=== PATIENT | female | born 1995 | race Hispanic/Latino ===

== ENCOUNTER 2017-12-10 07:53 | Inpatient (IN) | payer MEDICAID ==
[~2017-12-10] VITALS: Ht 149.9 cm; Wt 73.0 kg
[2017-12-10] MEDS ORDERED: LACTATED RINGERS 1000ML 1,000 ML IV PRN ×2 (08:11→08:31)
[2017-12-10 08:30] LABS: APPEARANCE,URINE Clear (CLEAR); BILIRUBIN,URINE Negative (NEGATIVE); COLOR,URINE Yellow (YELLOW); GLUCOSE, URINE (UA) Negative (NEGATIVE); KETONES,URINE Negative (NEGATIVE); LEUKOCYTE ESTERASE ,URINE Small (NEGATIVE); NITRATE,URINE Negative (NEGATIVE); OCCULT BLOOD,URINE Trace (NEGATIVE); PH,URINE 5.5 (5.0-8.0); PROTEIN,URINE Negative (NEGATIVE)
[2017-12-10 08:37] LABS: BACTERIA,URINE Rare /HPF (None Seen); SQUAMOUS EPITHELIAL CELL,UR Rare /HPF (0-2); WBC,URINE 0-1 /HPF (0-1)
[2017-12-10] MEDS ORDERED: OXYTOCIN 10 USP UNITS/ML 20 UNIT in LACTATED RINGERS 1000ML 1,000 ML IV SCH (08:45)
[2017-12-10 09:14] LABS: HEMATOCRIT 37.8 % (36-48); MEAN CORPUSCULAR HEMOGLOBIN 28.6 pg (27.0-33.0); MEAN CORPUSCULAR HGB CONC 33.6 g/dL (32.0-36.0); MEAN CORPUSCULAR VOLUME 85.1 fL (80-100); NUCLEATED RED BLOOD CELLS 0.1 % (0.0-0.19); PLATELET COUNT (AUTO) 206 K/uL (130-400); RED BLOOD CELL COUNT(AUTO) 4.44 MIL/uL (4.00-5.50); WHITE BLOOD COUNT (AUTO) 10.4 K/uL (4.8-10.8)
[2017-12-10] MEDS ORDERED: LACTATED RINGERS 1000ML 1,000 ML IV ONE ×2 (10:46→14:48)
[2017-12-10] MEDS ORDERED: OXYTOCIN 10 USP UNITS/ML ONE ×2 (10:46→14:49)
[2017-12-10] MEDS ORDERED: MEPERIDINE-PF 50 MG/ML SYG IVP SCH (11:45)
[2017-12-10] MEDS ORDERED: PROMETHAZINE HCL 25 MG/ML 1ML AMPULE IM SCH (11:45)
[2017-12-10] MEDS ORDERED: MEPERIDINE-PF 50 MG/ML SYG ONE (11:49)
[2017-12-10] MEDS ORDERED: PROMETHAZINE HCL 25 MG/ML 1ML AMPULE IM ONE (11:49)
[2017-12-10] MEDS ORDERED: DIPH,PERTUSS(ACELL),TET VAC/PF 0.5 ML VIAL IM PRN (13:30)
[2017-12-10] MEDS ORDERED: OXYTOCIN-LR 20 UNITS/1000 ML 1,000 ML IV SCH (13:30)
[2017-12-10] MEDS ORDERED: BENZOCAINE/LANOLIN/ALOE VERA 60 ML AEROSOL TP PRN (13:30)
[2017-12-10] MEDS ORDERED: ACETAMINOPHEN 325 MG TAB PO PRN (13:30)
[2017-12-10] MEDS ORDERED: MEASLES/MUMPS/RUBELLA VACCINE, LIVE 0.5 ML/VIAL SQ PRN (13:30)
[2017-12-10] MEDS ORDERED: WITCH HAZEL 1 PAD TP PRN (13:30)
[2017-12-10] MEDS ORDERED: LANOLIN 30GM OINTMENT TP PRN (13:30)
[2017-12-10 16:05] VITALS: BP 95/59
[2017-12-10] MEDS: IBUPROFEN 600 MG TABLET PO PRN (19:39)
[2017-12-10 20:00] VITALS: BP 123/79
[2017-12-10] MEDS: DOCUSATE SODIUM 100 MG CAP PO SCH (21:48)
[2017-12-11 00:34] VITALS: BP 119/70
[2017-12-11 04:27] VITALS: BP 91/60
[2017-12-11 05:08] LABS: HEMATOCRIT 33.2 % (36-48); MEAN CORPUSCULAR HEMOGLOBIN 29.5 pg (27.0-33.0); MEAN CORPUSCULAR HGB CONC 34.2 g/dL (32.0-36.0); MEAN CORPUSCULAR VOLUME 86.2 fL (80-100); NUCLEATED RED BLOOD CELLS 0.1 % (0.0-0.19); PLATELET COUNT (AUTO) 186 K/uL (130-400); RED BLOOD CELL COUNT(AUTO) 3.85 MIL/uL (4.00-5.50); RED CELL DISTRIBUTION WIDTH 14.9 % (11.0-15.5); WHITE BLOOD COUNT (AUTO) 11.4 K/uL (4.8-10.8)
[2017-12-11] MEDS: IBUPROFEN 600 MG TABLET PO PRN (05:47)
[2017-12-11 07:48] VITALS: BP 95/58
[2017-12-11 08:22] LABS: HEPATITIS Bs ANTIGEN SCREEN P Negative (Negative)
[2017-12-11] MEDS: DOCUSATE SODIUM 100 MG CAP PO SCH (08:25)
[2017-12-11 11:14] VITALS: BP 91/53
[2017-12-11 15:34] VITALS: BP 109/58
== END 2017-12-11 17:30 | disposition home or self-care (01) | DRG 560 ==
LOC: LDH 07:53 → OBSVTOIN 07:53 → WSH 16:00
PROVIDERS: ADMIT Obstetrics & Gynecology; ATTEND Obstetrics & Gynecology
PROC: 10E0XZZ Delivery of Products of Conception, External Approach (ICD-10-PCS; principal; 2017-12-10)
PROC: 3E0234Z Introduction of Serum, Toxoid and Vaccine into Muscle, Percutaneous Approach (ICD-10-PCS; 2017-12-10)
PROC: 3E0134Z Introduction of Serum, Toxoid and Vaccine into Subcutaneous Tissue, Percutaneous Approach (ICD-10-PCS; 2017-12-10)
DX: O69.2XX0 Labor and delivery complicated by other cord entanglement, with compression, not applicable or unspecified (principal); O77.0 Labor and delivery complicated by meconium in amniotic fluid; Z37.0 Single live birth; Z3A.38 38 weeks gestation of pregnancy; Z23 Encounter for immunization
CPT/HCPCS: 36415; 81001; 85027; 86592; 86850; 86900; 86901; 87340; A4351; A4606; J2175; J2550; J2590; J7120

== ENCOUNTER 2021-12-28 21:00 | Emergency (ER) | payer MEDICAID, OTHER ==
[~2021-12-28] VITALS: Ht 149.9 cm; Wt 53.1 kg
[2021-12-28] MEDS ORDERED: ACETAMINOPHEN WITH CODEINE 1 TAB TAB PO ONE (22:00)
[2021-12-28] MEDS ORDERED: IBUPROFEN 800 MG TAB PO ONE (22:00)
[2021-12-28] MEDS ORDERED: IBUP-2070 PO (22:23)
[2021-12-28] MEDS ORDERED: D-ME1POW16 PO (22:23)
[2021-12-28 22:44] VITALS: BP 107/66
== END 2021-12-28 23:04 | disposition home or self-care (01) ==
LOC: EDH 21:00
DX: J06.9 Acute upper respiratory infection, unspecified (principal); Z20.822 Contact with and (suspected) exposure to COVID-19
CPT/HCPCS: 71045; 81025; 87635; 87804 ×2; 87880; 99284; C9803

== ENCOUNTER 2024-01-01 14:48 | Observation (INO) | payer MEDICAID ==
[~2024-01-01] VITALS: Ht 149.9 cm; Wt 67.1 kg
[~2024-01-01 14:48] MED LIST: D-ME1POW16 PO; IBUP-2070 PO
[2024-01-01 14:54] VITALS: BP 106/70; PULSE 80; RESP 17
[2024-01-01 15:31] LABS: APPEARANCE,URINE CLOUDY (CLEAR); BILIRUBIN,URINE NEGATIVE (NEGATIVE); COLOR,URINE YELLOW (YELLOW); GLUCOSE, URINE (UA) NEGATIVE (NEGATIVE); KETONES,URINE 5 mg/dL (NEGATIVE); LEUKOCYTE ESTERASE ,URINE 500 Leu/uL (NEGATIVE); NITRATE,URINE NEGATIVE (NEGATIVE); OCCULT BLOOD,URINE LARGE (NEGATIVE); PH,URINE 6.5 (5.0-8.0); PROTEIN,URINE 30 mg/dL (NEGATIVE)
[2024-01-01 15:38] LABS: AMPHET/METH SCREEN,URINE POSITIVE (NEGATIVE); BARBITURATE SCREEN, URINE NEGATIVE (NEGATIVE); BENZODIAZEPINES SCREEN,URINE NEGATIVE (NEGATIVE); CANNABINOID SCREEN,URINE POSITIVE (NEGATIVE); COCAINE SCREEN,URINE NEGATIVE (NEGATIVE); OPIATE SCREEN,URINE NEGATIVE (NEGATIVE); PHENCYCLIDINE SCREEN,URINE NEGATIVE (NEGATIVE)
[2024-01-01 15:45] LABS: ADD UA MICROSCOPIC YES
[2024-01-01 15:50] LABS: BACTERIA,URINE RARE /HPF (None Seen); CALCIUM OXALATE CRYSTALS,UR RARE /LPF (None Seen); MUCUS,URINE MANY LPF (None Seen); NON-SQUAMOUS EPITHELIAL CELL <1 /HPF (0-2); RBC,URINE TNTC /HPF (0-1); SQUAMOUS EPITHELIAL CELL,UR MANY /HPF (0-2); WBC,URINE 51-100 /HPF (0-1); YEAST,URINE BUDDING RARE /HPF (None Seen)
== END 2024-01-01 16:40 | disposition home or self-care (01) ==
LOC: EDH 14:48 → LDH 15:10
PROVIDERS: ADMIT Obstetrics & Gynecology; ATTEND Obstetrics & Gynecology
DX: O36.8130 Decreased fetal movements, third trimester, not applicable or unspecified (principal); O99.323 Drug use complicating pregnancy, third trimester; F12.90 Cannabis use, unspecified, uncomplicated; F14.90 Cocaine use, unspecified, uncomplicated; Z3A.36 36 weeks gestation of pregnancy
CPT/HCPCS: 76819; 80305; 87088; 81001; G0379; G0378; 59025